=== PATIENT | female | born 1960 | race Two or more races ===

== ENCOUNTER → 2020-04-01 06:00 | Outpatient (CLI) | payer OTHER ==
[~2020-04-01] VITALS: Ht 165.1 cm; Wt 66.2 kg
[~2020-04-01 06:00] MED LIST: DOXE PO; DOXEPIN PO; DOXIPIN PO; EVISTA60 MG PO; GABAPENT PO; GABAPENTIN PO; IMITREX100 MG PO; POTASSIUM PO; PROBIOTIC1 EAC2 PO; ROBINAL; STOOL PO; UROCIT-K10 MEQ PO; VITAMIN K PO; XANAX PO; XANAX XR0.5 MG PO; ZYRTEC10 M3 PO
== END | disposition home or self-care (01) ==
LOC: LAB 06:00 → SURH 04-08 11:45 → EDSTATUS 04-08 11:45 → SURH 04-08 12:30
PROVIDERS: ATTEND Surgery
DX: R19.4 Change in bowel habit (principal); R10.12 Left upper quadrant pain; R10.11 Right upper quadrant pain; R10.13 Epigastric pain; K81.1 Chronic cholecystitis

== ENCOUNTER → 2020-04-24 09:49 | Outpatient (CLI) | payer OTHER ==
[~2020-04-24 09:49] MED LIST changes: -DOXIPIN PO; -GABAPENT PO; -POTASSIUM PO; -PROBIOTIC1 EAC2 PO; -STOOL PO; -VITAMIN K PO; -XANAX PO
== END | disposition home or self-care (01) ==
LOC: LAB 09:49
PROVIDERS: ATTEND Internal Medicine Hematology & Oncology
DX: D68.8 Other specified coagulation defects (principal); D69.1 Qualitative platelet defects; D50.8 Other iron deficiency anemias; D51.1 Vitamin B12 deficiency anemia due to selective vitamin B12 malabsorption with proteinuria; D68.4 Acquired coagulation factor deficiency; F33.8 Other recurrent depressive disorders; K29.70 Gastritis, unspecified, without bleeding; G62.89 Other specified polyneuropathies; M79.7 Fibromyalgia

== ENCOUNTER 2020-05-04 09:10 | Outpatient (CLI) | payer OTHER | END 2020-05-04 09:12 | disposition home or self-care (01) | LOC: LAB 09:10 | PROVIDERS: ATTEND Internal Medicine Hematology & Oncology | DX: D50.8 Other iron deficiency anemias (principal); I10 Essential (primary) hypertension; D68.8 Other specified coagulation defects; D68.2 Hereditary deficiency of other clotting factors; D66 Hereditary factor VIII deficiency; D68.4 Acquired coagulation factor deficiency; F33.8 Other recurrent depressive disorders; K29.70 Gastritis, unspecified, without bleeding; G62.89 Other specified polyneuropathies; M79.7 Fibromyalgia; B96.81 Helicobacter pylori [H. pylori] as the cause of diseases classified elsewhere ==

== ENCOUNTER 2020-05-24 10:57 | Outpatient (CLI) | payer OTHER | END 2020-05-24 11:03 | disposition home or self-care (01) | LOC: LAB 10:57 | PROVIDERS: ATTEND Internal Medicine Hematology & Oncology | DX: D68.8 Other specified coagulation defects (principal) ==

== ENCOUNTER 2020-05-27 09:34 | Outpatient (CLI) | payer OTHER ==
[2020-06-01] MEDS ORDERED: PROBIOTIC1 EAC2 PO (13:58)
[2020-06-01] MEDS ORDERED: VITAMIN K PO (13:58)
[2020-06-01] MEDS ORDERED: POTASSIUM PO (13:59)
[2020-06-01] MEDS ORDERED: EVISTA60 MG PO (13:59)
[2020-06-01] MEDS ORDERED: STOOL PO (14:00)
[2020-06-01] MEDS ORDERED: XANAX PO (14:01)
[2020-06-01] MEDS ORDERED: GABAPENT PO (14:01)
[2020-06-01] MEDS ORDERED: DOXIPIN PO (14:02)
== END 2020-05-27 09:40 | disposition home or self-care (01) ==
LOC: LAB 09:34
PROVIDERS: ATTEND Surgery
DX: R19.4 Change in bowel habit (principal); R10.12 Left upper quadrant pain; R10.11 Right upper quadrant pain; R10.13 Epigastric pain; K81.1 Chronic cholecystitis

== ENCOUNTER 2020-06-03 05:36 | Day surgery (SDC) | payer OTHER ==
[~2020-06-03 05:36] MED LIST changes: +DOXIPIN PO; +GABAPENT PO; +POTASSIUM PO; +PROBIOTIC1 EAC2 PO; +STOOL PO; +VITAMIN K PO; +XANAX PO
[2020-06-03] MEDS ORDERED: PERCOCET 5-3251 EACH PO (12:10)
[2020-06-03] MEDS ORDERED: PROTONIX40 MG PO (12:10)
[2020-06-03] MEDS ORDERED: ZOFRAN4 MG PO (12:11)
== END 2020-06-03 20:45 | disposition home or self-care (01) ==
LOC: CIR.AMB 05:36
PROVIDERS: ATTEND Surgery
DX: K81.1 Chronic cholecystitis (principal); Z20.828 Contact with and (suspected) exposure to other viral communicable diseases

== ENCOUNTER → 2020-08-31 10:27 | Outpatient (CLI) | payer OTHER ==
[~2020-08-31 10:27] MED LIST changes: +PERCOCET 5-3251 EACH PO; +PROTONIX40 MG PO; +ZOFRAN4 MG PO
== END | disposition home or self-care (01) ==
LOC: LAB 10:27
PROVIDERS: ATTEND Internal Medicine Hematology & Oncology
DX: D68.8 Other specified coagulation defects (principal); D51.3 Other dietary vitamin B12 deficiency anemia

== ENCOUNTER 2020-11-19 10:07 | Outpatient (CLI) | payer OTHER | END 2020-11-19 10:08 | disposition home or self-care (01) | LOC: LAB 10:07 | PROVIDERS: ATTEND Internal Medicine Hematology & Oncology | DX: D50.8 Other iron deficiency anemias (principal); I10 Essential (primary) hypertension; D51.8 Other vitamin B12 deficiency anemias; D51.1 Vitamin B12 deficiency anemia due to selective vitamin B12 malabsorption with proteinuria; D51.0 Vitamin B12 deficiency anemia due to intrinsic factor deficiency; D68.8 Other specified coagulation defects; D68.4 Acquired coagulation factor deficiency; F33.8 Other recurrent depressive disorders; K29.70 Gastritis, unspecified, without bleeding; G62.89 Other specified polyneuropathies; M79.7 Fibromyalgia; B96.81 Helicobacter pylori [H. pylori] as the cause of diseases classified elsewhere ==

== ENCOUNTER → 2021-04-08 11:03 | Outpatient (CLI) | payer OTHER | END | disposition home or self-care (01) | LOC: LAB 11:03 | PROVIDERS: ATTEND Internal Medicine Hematology & Oncology | DX: D50.8 Other iron deficiency anemias (principal); I10 Essential (primary) hypertension; R74.02 Elevation of levels of lactic acid dehydrogenase [LDH]; D51.8 Other vitamin B12 deficiency anemias; D68.8 Other specified coagulation defects; D68.4 Acquired coagulation factor deficiency; D51.1 Vitamin B12 deficiency anemia due to selective vitamin B12 malabsorption with proteinuria; G62.9 Polyneuropathy, unspecified; M79.7 Fibromyalgia; K29.70 Gastritis, unspecified, without bleeding; F33.9 Major depressive disorder, recurrent, unspecified; B96.81 Helicobacter pylori [H. pylori] as the cause of diseases classified elsewhere ==

== ENCOUNTER 2022-04-24 07:36 | Outpatient (CLI) | payer OTHER | END 2022-04-24 07:37 | disposition home or self-care (01) | LOC: LAB 07:36 | PROVIDERS: ATTEND Internal Medicine Hematology & Oncology | DX: D50.8 Other iron deficiency anemias (principal); R79.9 Abnormal finding of blood chemistry, unspecified; I10 Essential (primary) hypertension; R74.02 Elevation of levels of lactic acid dehydrogenase [LDH]; K76.89 Other specified diseases of liver; D68.8 Other specified coagulation defects; E56.1 Deficiency of vitamin K; D51.1 Vitamin B12 deficiency anemia due to selective vitamin B12 malabsorption with proteinuria; G62.9 Polyneuropathy, unspecified; M79.7 Fibromyalgia; K90.9 Intestinal malabsorption, unspecified; K29.70 Gastritis, unspecified, without bleeding; F33.9 Major depressive disorder, recurrent, unspecified; B96.81 Helicobacter pylori [H. pylori] as the cause of diseases classified elsewhere ==

== ENCOUNTER 2022-11-15 10:00 | Outpatient (CLI) | payer OTHER | END 2022-11-15 10:01 | disposition home or self-care (01) | LOC: LAB 10:00 | PROVIDERS: ATTEND Internal Medicine Hematology & Oncology | DX: D50.8 Other iron deficiency anemias (principal); R79.9 Abnormal finding of blood chemistry, unspecified; I10 Essential (primary) hypertension; R74.02 Elevation of levels of lactic acid dehydrogenase [LDH]; K76.89 Other specified diseases of liver; D51.1 Vitamin B12 deficiency anemia due to selective vitamin B12 malabsorption with proteinuria; D51.0 Vitamin B12 deficiency anemia due to intrinsic factor deficiency; D68.8 Other specified coagulation defects; E56.1 Deficiency of vitamin K; C50.919 Malignant neoplasm of unspecified site of unspecified female breast; R97.0 Elevated carcinoembryonic antigen [CEA]; R97.8 Other abnormal tumor markers ==

== ENCOUNTER 2023-05-17 11:15 | Outpatient (CLI) | payer OTHER | END 2023-05-17 13:26 | disposition home or self-care (01) | LOC: LAB 11:15 | PROVIDERS: ATTEND Internal Medicine Hematology & Oncology | DX: D50.8 Other iron deficiency anemias (principal); R79.9 Abnormal finding of blood chemistry, unspecified; I10 Essential (primary) hypertension; R74.02 Elevation of levels of lactic acid dehydrogenase [LDH]; K76.89 Other specified diseases of liver; D68.8 Other specified coagulation defects; E56.1 Deficiency of vitamin K; C50.919 Malignant neoplasm of unspecified site of unspecified female breast; R97.8 Other abnormal tumor markers; R97.0 Elevated carcinoembryonic antigen [CEA]; D51.1 Vitamin B12 deficiency anemia due to selective vitamin B12 malabsorption with proteinuria; G62.9 Polyneuropathy, unspecified; M79.7 Fibromyalgia; K29.70 Gastritis, unspecified, without bleeding; F33.9 Major depressive disorder, recurrent, unspecified; B96.81 Helicobacter pylori [H. pylori] as the cause of diseases classified elsewhere; M54.30 Sciatica, unspecified side; K90.89 Other intestinal malabsorption ==

== ENCOUNTER → 2023-11-14 09:40 | Outpatient (CLI) | payer OTHER ==
[2023-11-14 10:53] LABS: HEMATOCRIT 33.9 % (36.0-45.00); HEMOGLOBIN 11.4 g/dL (12.0-15.00); MEAN CELL VOLUME 91.3 fL (80.00-100.00); MEAN CORPUSCULAR HEMOGLOBIN 30.8 pg (27.00-32.0); MEAN CORPUSCULAR HGB CONC 33.7 g/dl (32.0-36.0); PLATELET COUNT 240 K/uL (150-450); RED BLOOD COUNT 3.71 M/uL (4.00-6.00); RED CELL DISTRIBUTION WIDTH 13.7 % (11.5-14.5)
[2023-11-14 10:57] LABS: ALBUMIN 3.6 gm/dL (3.4-5.0); BILIRUBIN TOTAL 0.45 mg/dL (0.3-1.2); CREATININE SERUM 0.79 mg/dL (0.55-1.02); GFR 73.74; GLOBULINA 3.4 G/DL (2.4-3.5); POTASSIUM 4.12 mEq/L (3.5-5.1)
[2023-11-14 11:45] LABS: FOLIC ACID > 20.00 ng/ml (4.78-20)
[2023-11-14 12:14] LABS: MANUAL PLATELET COUNT 462
[2023-11-14 12:16] LABS: PLATELET ESTIMATE NORMAL (NORMAL)
[2023-11-15 16:10] LABS: hgb a 97.3 % (96.4-98.8); hgb a2 2.7 % (1.8-3.2); hgb f 0 % (0.0-2.0); hgb s 0 % (0.0)
== END | disposition home or self-care (01) ==
LOC: LAB 09:40
PROVIDERS: ATTEND Internal Medicine Hematology & Oncology
DX: D50.8 Other iron deficiency anemias (principal); R79.9 Abnormal finding of blood chemistry, unspecified; I10 Essential (primary) hypertension; R74.02 Elevation of levels of lactic acid dehydrogenase [LDH]; K76.89 Other specified diseases of liver; D63.8 Anemia in other chronic diseases classified elsewhere; D55.0 Anemia due to glucose-6-phosphate dehydrogenase [G6PD] deficiency; D51.8 Other vitamin B12 deficiency anemias; D51.1 Vitamin B12 deficiency anemia due to selective vitamin B12 malabsorption with proteinuria; D51.0 Vitamin B12 deficiency anemia due to intrinsic factor deficiency; E56.1 Deficiency of vitamin K; G62.9 Polyneuropathy, unspecified; M79.7 Fibromyalgia; K29.70 Gastritis, unspecified, without bleeding; F33.9 Major depressive disorder, recurrent, unspecified; B96.81 Helicobacter pylori [H. pylori] as the cause of diseases classified elsewhere; M54.30 Sciatica, unspecified side; Z88.6 Allergy status to analgesic agent

== ENCOUNTER 2024-02-12 09:51 | Outpatient (CLI) | payer OTHER ==
[2024-02-12 12:08] LABS: HEMATOCRIT 36.6 % (36.0-45.00); HEMOGLOBIN 12.3 g/dL (12.0-15.00); MEAN CELL VOLUME 92.1 fL (80.00-100.00); MEAN CORPUSCULAR HGB CONC 33.7 g/dl (32.0-36.0); PLATELET COUNT 159 K/uL (150-450); RED BLOOD COUNT 3.97 M/uL (4.00-6.00); RED CELL DISTRIBUTION WIDTH 12.9 % (11.5-14.5)
[2024-02-12 12:52] LABS: ALBUMIN 3.8 gm/dL (3.4-5.0); BILIRUBIN TOTAL 0.42 mg/dL (0.3-1.2); CALCIUM 9.2 mg/dL (8.5-10.1); CREATININE SERUM 0.78 mg/dL (0.55-1.02); GFR 74.83; GLOBULINA 3.6 G/DL (2.4-3.5); POTASSIUM 4.8 mEq/L (3.5-5.1); TOTAL PROTEIN 7.4 gm/dL (6.4-8.2); TSH 0.398 uIU/mL (0.358-3.74)
[2024-02-12 13:23] LABS: FOLIC ACID > 20.00 ng/ml (4.78-20)
[2024-02-13 13:12] LABS: MANUAL PLATELET COUNT 434
[2024-02-13 13:17] LABS: PLATELET ESTIMATE NORMAL (NORMAL)
[2024-02-14 11:12] LABS: CA 15-3 9.2 U/mL (0.0-25.0)
== END 2024-02-12 09:52 | disposition home or self-care (01) ==
LOC: LAB 09:51
PROVIDERS: ATTEND Internal Medicine Hematology & Oncology
DX: E56.1 Deficiency of vitamin K (principal); D51.1 Vitamin B12 deficiency anemia due to selective vitamin B12 malabsorption with proteinuria; G62.9 Polyneuropathy, unspecified; M79.7 Fibromyalgia; K29.70 Gastritis, unspecified, without bleeding; F33.9 Major depressive disorder, recurrent, unspecified; B96.81 Helicobacter pylori [H. pylori] as the cause of diseases classified elsewhere; M54.30 Sciatica, unspecified side; D50.8 Other iron deficiency anemias; I10 Essential (primary) hypertension; R74.02 Elevation of levels of lactic acid dehydrogenase [LDH]; K76.89 Other specified diseases of liver; E03.8 Other specified hypothyroidism; E06.3 Autoimmune thyroiditis; C50.919 Malignant neoplasm of unspecified site of unspecified female breast; R97.8 Other abnormal tumor markers; C56.9 Malignant neoplasm of unspecified ovary; R97.1 Elevated cancer antigen 125 [CA 125]

== ENCOUNTER 2024-10-06 09:41 | Outpatient (CLI) | payer OTHER ==
[2024-10-06 11:09] LABS: HEMATOCRIT 35.9 % (36.0-45.00); HEMOGLOBIN 11.8 g/dL (12.0-15.00); MEAN CELL VOLUME 91.2 fL (80.00-100.00); MEAN CORPUSCULAR HGB CONC 32.9 g/dl (32.0-36.0); PLATELET COUNT 249 K/uL (150-450); RED BLOOD COUNT 3.94 M/uL (4.00-6.00); RED CELL DISTRIBUTION WIDTH 13.3 % (11.5-14.5)
[2024-10-06 11:50] LABS: INR 1.12; PARTIAL THROMBOPLASTIN TIME 28.4 SECONDS (22.0-34.0); PROTHROMBIN TIME 12.1 SECONDS (9.0-11.5)
[2024-10-06 12:28] LABS: ALBUMIN 3.8 gm/dL (3.4-5.0); BILIRUBIN TOTAL 0.49 mg/dL (0.3-1.2); CALCIUM 9.3 mg/dL (8.5-10.1); CREATININE SERUM 0.74 mg/dL (0.55-1.02); GFR 79.26; GLOBULINA 3.2 G/DL (2.4-3.5); POTASSIUM 4.52 mEq/L (3.5-5.1); T4 FREE 0.92 NG/ML (0.76-1.46); TSH 0.783 uIU/mL (0.358-3.74)
[2024-10-06 12:38] LABS: FOLIC ACID 14.29 ng/ml (4.78-20)
[2024-10-07 08:06] LABS: MANUAL PLATELET COUNT 380
[2024-10-07 08:07] LABS: PLATELET ESTIMATE NORMAL (NORMAL)
== END 2024-10-06 10:01 | disposition home or self-care (01) ==
LOC: LAB 09:41
PROVIDERS: ATTEND Internal Medicine Hematology & Oncology
DX: E56.1 Deficiency of vitamin K (principal); D51.1 Vitamin B12 deficiency anemia due to selective vitamin B12 malabsorption with proteinuria; G62.9 Polyneuropathy, unspecified; M79.7 Fibromyalgia; K90.9 Intestinal malabsorption, unspecified; K29.70 Gastritis, unspecified, without bleeding; F33.9 Major depressive disorder, recurrent, unspecified; B96.81 Helicobacter pylori [H. pylori] as the cause of diseases classified elsewhere; M54.30 Sciatica, unspecified side; D50.8 Other iron deficiency anemias; R79.9 Abnormal finding of blood chemistry, unspecified; K76.89 Other specified diseases of liver; R74.02 Elevation of levels of lactic acid dehydrogenase [LDH]; I10 Essential (primary) hypertension; D51.8 Other vitamin B12 deficiency anemias; E03.8 Other specified hypothyroidism; D68.8 Other specified coagulation defects

== ENCOUNTER → 2024-10-16 | Outpatient (CLI) | payer OTHER | END | disposition home or self-care (01) | LOC: TOM 06:57 | PROVIDERS: ATTEND Internal Medicine Hematology & Oncology | DX: D68.4 Acquired coagulation factor deficiency (principal); D51.1 Vitamin B12 deficiency anemia due to selective vitamin B12 malabsorption with proteinuria; G62.9 Polyneuropathy, unspecified; M79.7 Fibromyalgia; K29.70 Gastritis, unspecified, without bleeding; K90.9 Intestinal malabsorption, unspecified; F33.9 Major depressive disorder, recurrent, unspecified; B96.81 Helicobacter pylori [H. pylori] as the cause of diseases classified elsewhere; M54.30 Sciatica, unspecified side | CPT/HCPCS: 71270; 74178; Q9965 ==

== ENCOUNTER → 2024-10-20 12:04 | Outpatient (CLI) | payer OTHER ==
[2024-10-26 22:03] LABS: metanephrines 64.5 pg/mL (0.0-88.0); normeta 122.6 pg/mL (0.0-285.2)
== END | disposition home or self-care (01) ==
LOC: LAB 12:04
PROVIDERS: ATTEND Internal Medicine Hematology & Oncology
DX: D68.4 Acquired coagulation factor deficiency (principal); D51.1 Vitamin B12 deficiency anemia due to selective vitamin B12 malabsorption with proteinuria; G52.9 Cranial nerve disorder, unspecified; M79.7 Fibromyalgia; K29.70 Gastritis, unspecified, without bleeding; F33.9 Major depressive disorder, recurrent, unspecified; B96.81 Helicobacter pylori [H. pylori] as the cause of diseases classified elsewhere; M54.30 Sciatica, unspecified side; C7A.00 Malignant carcinoid tumor of unspecified site

== ENCOUNTER → 2024-10-23 11:38 | Outpatient (CLI) | payer OTHER ==
[2024-10-29 18:04] LABS: hiaa 1.9 mg/L (Undefined)
== END | disposition home or self-care (01) ==
LOC: LAB 11:38
PROVIDERS: ATTEND Internal Medicine Hematology & Oncology
DX: D68.4 Acquired coagulation factor deficiency (principal); G62.9 Polyneuropathy, unspecified; M79.7 Fibromyalgia; K90.0 Celiac disease; K29.70 Gastritis, unspecified, without bleeding; F33.9 Major depressive disorder, recurrent, unspecified; B96.81 Helicobacter pylori [H. pylori] as the cause of diseases classified elsewhere; M54.30 Sciatica, unspecified side; C7A.00 Malignant carcinoid tumor of unspecified site

== ENCOUNTER → 2025-02-10 10:24 | Outpatient (CLI) | payer OTHER ==
[2025-02-10 11:23] LABS: HEMATOCRIT 37.1 % (36.0-45.00); HEMOGLOBIN 12.1 g/dL (12.0-15.00); MEAN CELL VOLUME 91.5 fL (80.00-100.00); MEAN CORPUSCULAR HEMOGLOBIN 29.9 pg (27.00-32.0); MEAN CORPUSCULAR HGB CONC 32.6 g/dl (32.0-36.0); PLATELET COUNT 231 K/uL (150-450); RED BLOOD COUNT 4.06 M/uL (4.00-6.00); RED CELL DISTRIBUTION WIDTH 13.2 % (11.5-14.5)
[2025-02-10 12:27] LABS: ALBUMIN 3.8 gm/dL (3.4-5.0); BILIRUBIN TOTAL 0.59 mg/dL (0.3-1.2); CALCIUM 9.5 mg/dL (8.5-10.1); CREATININE SERUM 0.81 mg/dL (0.55-1.02); GFR 71.41; GLOBULINA 3.5 G/DL (2.4-3.5); POTASSIUM 4.71 mEq/L (3.5-5.1); TOTAL PROTEIN 7.3 gm/dL (6.4-8.2)
[2025-02-11 07:17] LABS: MANUAL PLATELET COUNT 292; PLATELET ESTIMATE NORMAL (NORMAL)
== END | disposition home or self-care (01) ==
LOC: LAB 10:24
PROVIDERS: ATTEND Internal Medicine Hematology & Oncology
DX: C7A.00 Malignant carcinoid tumor of unspecified site (principal); R23.2 Flushing; E56.1 Deficiency of vitamin K; D51.1 Vitamin B12 deficiency anemia due to selective vitamin B12 malabsorption with proteinuria; G62.9 Polyneuropathy, unspecified; M79.7 Fibromyalgia; K90.9 Intestinal malabsorption, unspecified; K29.70 Gastritis, unspecified, without bleeding; F33.9 Major depressive disorder, recurrent, unspecified; B96.81 Helicobacter pylori [H. pylori] as the cause of diseases classified elsewhere; M54.30 Sciatica, unspecified side; D50.8 Other iron deficiency anemias; I10 Essential (primary) hypertension; R74.02 Elevation of levels of lactic acid dehydrogenase [LDH]; K76.89 Other specified diseases of liver; R79.9 Abnormal finding of blood chemistry, unspecified

== ENCOUNTER → 2025-02-12 06:55 | Outpatient (CLI) | payer OTHER | END | disposition home or self-care (01) | LOC: LAB 06:55 | PROVIDERS: ATTEND Internal Medicine Hematology & Oncology | DX: C7A.00 Malignant carcinoid tumor of unspecified site (principal); R23.2 Flushing; D68.4 Acquired coagulation factor deficiency; D51.1 Vitamin B12 deficiency anemia due to selective vitamin B12 malabsorption with proteinuria; G62.9 Polyneuropathy, unspecified; M79.7 Fibromyalgia; K90.0 Celiac disease; K29.70 Gastritis, unspecified, without bleeding; F33.9 Major depressive disorder, recurrent, unspecified; B96.81 Helicobacter pylori [H. pylori] as the cause of diseases classified elsewhere; M54.30 Sciatica, unspecified side; R79.9 Abnormal finding of blood chemistry, unspecified; D50.8 Other iron deficiency anemias; I10 Essential (primary) hypertension; R74.02 Elevation of levels of lactic acid dehydrogenase [LDH]; K76.89 Other specified diseases of liver ==

== ENCOUNTER 2025-04-24 10:09 | Outpatient (CLI) | payer OTHER ==
[2025-04-24 11:23] LABS: BASO % 0.8 % (0.1-1.2); EOS # 0.14 (0.04-0.54); EOS % 2.3 % (0.7-7.0); HEMATOCRIT 36.2 % (34.1-44.9); HEMOGLOBIN 11.6 g/dL (11.2-15.7); LYMPH % 34.9 % (19.3-53.1); MEAN CORPUSCULAR HEMOGLOBIN 29.1 pg (25.6-32.2); MONO # 0.48 (0.24-0.82); NEUT # 3.23 (1.56-6.13); NEUT % 53.8 % (34.0-71.1); PLATELET COUNT 254 K/uL (163-369); RED BLOOD COUNT 3.98 M/uL (3.93-5.22)
[2025-04-24 12:28] LABS: ALBUMIN 3.9 gm/dL (3.4-5.0); BILIRUBIN TOTAL 0.61 mg/dL (0.3-1.2); CALCIUM 9.3 mg/dL (8.5-10.1); CHOL HDL RATIO 2.5 (0-5.0); CREATININE SERUM 0.83 mg/dL (0.55-1.02); GFR 69.43; GLOBULINA 3.5 G/DL (2.4-3.5); POTASSIUM 4.53 mEq/L (3.5-5.1); T4 FREE 1.02 NG/ML (0.76-1.46); TOTAL PROTEIN 7.4 gm/dL (6.4-8.2); TSH 0.624 uIU/mL (0.358-3.74)
[2025-04-27 10:15] LABS: MANUAL PLATELET COUNT 280
== END 2025-04-24 10:10 | disposition home or self-care (01) ==
LOC: LAB 10:09
PROVIDERS: ATTEND Internal Medicine Hematology & Oncology
DX: C7A.00 Malignant carcinoid tumor of unspecified site (principal); R23.2 Flushing; E56.1 Deficiency of vitamin K; D51.1 Vitamin B12 deficiency anemia due to selective vitamin B12 malabsorption with proteinuria; G62.9 Polyneuropathy, unspecified; M79.7 Fibromyalgia; K90.0 Celiac disease; K29.70 Gastritis, unspecified, without bleeding; F33.9 Major depressive disorder, recurrent, unspecified; B96.81 Helicobacter pylori [H. pylori] as the cause of diseases classified elsewhere; M54.30 Sciatica, unspecified side; D50.8 Other iron deficiency anemias; R79.9 Abnormal finding of blood chemistry, unspecified; I10 Essential (primary) hypertension; R74.02 Elevation of levels of lactic acid dehydrogenase [LDH]; K76.89 Other specified diseases of liver; C73 Malignant neoplasm of thyroid gland; E03.8 Other specified hypothyroidism; D35.00 Benign neoplasm of unspecified adrenal gland; E11.65 Type 2 diabetes mellitus with hyperglycemia; E78.5 Hyperlipidemia, unspecified

== ENCOUNTER 2025-06-01 10:06 | Outpatient (CLI) | payer OTHER | END 2025-06-01 10:10 | disposition home or self-care (01) | LOC: SONOGRAMA 10:06 | PROVIDERS: ATTEND Pathology Anatomic Pathology & Clinical Pathology | DX: D34 Benign neoplasm of thyroid gland (principal); E07.89 Other specified disorders of thyroid; E04.2 Nontoxic multinodular goiter ==

== ENCOUNTER 2025-09-08 09:53 | Outpatient (CLI) | payer OTHER ==
[2025-09-08 10:40] LABS: BASO % 1.1 % (0.1-1.2); EOS # 0.13 (0.04-0.54); EOS % 2.4 % (0.7-7.0); LYMPH # 2.04 (1.18-3.74); LYMPH % 37.1 % (19.3-53.1); MEAN PLATELET VOLUME 10.50 fl (9.4-12.4); MONO # 0.43 (0.24-0.82); MONO % 7.8 % (4.7-12.5); NEUT # 2.83 (1.56-6.13); NEUT % 51.4 % (34.0-71.1); RED CELL DISTRIBUTION WIDTH 13.2 % (11.6-14.4)
[2025-09-08 11:24] LABS: ALT/SGPT 26.0 U/L (12-78); AST/SGOT 24.0 U/L (15-37); BILIRUBIN TOTAL 0.48 mg/dL (0.3-1.2); BUN CREA RATIO 20.0 (7.0-25.0); CREATININE SERUM 0.71 mg/dL (0.55-1.02); FE 128.0 ug/dl (50-170); GFR 82.88; GLOBULINA 3.1 G/DL (2.4-3.5); GLUCOSE FASTING 84.0 mg/dL (65-100); LDH 181.0 U/L (84-246); OSMOLALITY SERUM 283.0 MOSM/KG (275-295)
[2025-09-08 11:40] LABS: FOLIC ACID 14.35 ng/ml (4.78-20)
== END 2025-09-08 09:57 | disposition home or self-care (01) ==
LOC: LAB 09:53
PROVIDERS: ATTEND Internal Medicine Hematology & Oncology
DX: C7A.00 Malignant carcinoid tumor of unspecified site (principal); D50.8 Other iron deficiency anemias; I10 Essential (primary) hypertension; R74.02 Elevation of levels of lactic acid dehydrogenase [LDH]; K76.89 Other specified diseases of liver; D51.8 Other vitamin B12 deficiency anemias; R23.2 Flushing; E56.1 Deficiency of vitamin K; D51.1 Vitamin B12 deficiency anemia due to selective vitamin B12 malabsorption with proteinuria; G62.9 Polyneuropathy, unspecified; M79.7 Fibromyalgia; K90.9 Intestinal malabsorption, unspecified; K29.70 Gastritis, unspecified, without bleeding; F33.9 Major depressive disorder, recurrent, unspecified; B96.81 Helicobacter pylori [H. pylori] as the cause of diseases classified elsewhere; M54.30 Sciatica, unspecified side